=== PATIENT | female | born 1995 | race Native Hawaiian/Other Pacific Islander ===

== ENCOUNTER 2022-11-20 08:08 | Emergency (ER) | payer SELFPAY ==
[2022-11-20 09:05] LABS: Absolute Lymphocytes (CBC) 1.6 K/uL (0.7-4.9); Hematocrit 36.6 % (36.0-45.0); Lymphocytes % 15.1 % (15.3-44.8); MCV 89.1 fL (80-100); RBC Red Blood Cell Count 4.11 M/uL (3.86-4.86)
[2022-11-20 09:21] LABS: Albumin 3.3 g/dL (3.4-5.0); Bilirubin Total 0.3 mg/dL (0.2-1.0); Potassium 3.2 mEq/L (3.5-5.1); Protein, Total 8.3 g/dL (6.4-8.2)
[2022-11-20 10:31] LABS: Specific Gravity > 1.030 (1.005-1.030); Urine Bacteria >50 /HPF (<20); Urine Bilirubin NEGATIVE (Negative); Urine Blood 2+ (Negative); Urine Clarity Extremely Turbid (Clear); Urine Color Yellow (Yellow); Urine Glucose NEGATIVE (Negative); Urine Mucus 2+ /HPF (None Seen); Urine Protein 1+ (Negative); Urine RBC 21-50 /HPF (None Seen); Urine Urobilinogen 1+ (Normal); Urine pH 6.5 (5.0-7.0)
[2022-11-20 10:39] LABS: Specific Gravity > 1.030 (1.005-1.030)
--- NOTE | 2022-11-20 11:34 | RAD REPORT ---
EXAM DESCRIPTION: CT - Abdomen Pelvis W Contrast - 11/20/2022 10:47 am CLINICAL HISTORY: Abd pain;Flank pain COMPARISON: No comparisons TECHNIQUE: Thin cut axial CT imaging of the abdomen and pelvis was performed following intravenous a dministration of 90 Isovue 300. Multiplanar reformats were generated and reviewed. All CT scans are performed using dose optimization technique as appropriate and may include automated exposure control or mA/KV adjustment according to patient size. FINDINGS: No suspicious findings in the lung bases. The liver, spleen, and pancreas show no suspicious findings. Gallbladder and biliary tree are also wi thout suspicious finding. Symmetric renal function is seen with no hydronephrosis or suspicious renal mass. Incidentally noted left renal mid pole 2.3 cm cyst. No dilated bowel loops or bowel wall thickening. No free air, free fluid or inflammatory stranding. A ppendix is unremarkable. Right adnexal lobulated fluid density structures, with the largest component measuring 2.4 x 2.4 cm i n greatest axial dimensions, and demonstrating thick wall with heterogeneous enhancement. Mild fat st randing along the right pelvic sidewall, and right aspect of the retroperitoneum, with prominent righ t retroperitoneal lymph nodes with surrounding fat stranding, the largest measuring 12 millimeter in short axis. Urinary bladder is suboptimally distended, limiting evaluation. No suspicious bony findings. IMPRESSION: Right adnexal lobulated fluid density structures, with the largest component demonstrati ng thick wall with heterogeneous enhancement. Mild fat stranding extending along the right pelvic sidewall and right aspect of the retroperitoneum with mildly prominent lymph nodes. Overall, the findings raise concern for an infectious or inflammatory process in the pelvis, includin g pelvic inflammatory disease. Please correlate clinically. Thrombophlebitis along the right gonadal vein is also a consideration.
--- NOTE | 2022-11-20 11:41 | EDPHYS ---
Physician Documentation [facility] Name: Beryl Reddy Age: 26 yrs Sex: Female : 1995 Arrival Date: 11/20/2022 Time: 08:08 Bed 7 Private MD: ED Physician Bryan Brown HPI: 11/20 08:18 This 26 yrs old Female presents to ER via Unassigned with complaints of Fever, Flank kb Pain, Headache, Nausea/Vomiting. 08:18 The patient reports fever, not measured (subjective), with an emergency department kb temperature of 101.3 degrees Fahrenheit. Onset: The symptoms/episode began/occurred 3 day(s) ago. Modifying factors: there are no obvious modifying factors. Associated signs and symptoms: Pertinent positives: headache, vomiting, low back pain. Severity of symptoms: At their worst the symptoms were moderate in the emergency department the symptoms are unchanged. The patient has not experienced similar symptoms in the past. The patient has not recently seen a physician. Patient is a 26-year-old female with no medical history who presents with fever, headache, low back pain, nausea and vomiting for 3 days. Denies abdominal pain, diarrhea, constipation, urinary symptoms. Denies sick contacts.. Historical: - Allergies: 08:19 No Known Allergies; hb - Home Meds: 08:19 None [Active]; hb - PMHx: 08:19 None; hb - PSHx: 08:19 None; hb - Immunization history:: Adult Immunizations up to date. - Social history:: Smoking status: Patient denies any tobacco usage or history of. ROS: 08:17 Respiratory: Negative for shortness of breath, cough, wheezing, and pleuritic chest kb pain. 08:17 Constitutional: Positive for fever, malaise. 08:17 Abdomen/GI: Positive for nausea and vomiting, Negative for abdominal pain. 08:17 Back: Positive for pain at rest, of the right low back. 08:17 Neuro: Positive for headache. 08:17 All other systems are negative. Exam: 08:17 Constitutional: This is a well developed, well nourished patient who is awake, alert, kb and in no acute distress. Head/Face: Normocephalic, atraumatic. ENT: Moist Mucous membranes Chest/axilla: Normal chest wall appearance and motion. Cardiovascular: Regular rate and rhythm with a normal S1 and S2. No gallops, murmurs, or rubs. No pulse deficits. Respiratory: Respirations even and unlabored. No increased work of breathing. Talking in full sentences Abdomen/GI: Soft, non-tender. No distention Skin: Warm, dry with normal turgor. Normal color. MS/ Extremity: Pulses equal, no cyanosis. Neurovascular intact. Full, normal range of motion. Neuro: Awake and alert, GCS 15, oriented to person, place, time, and situation. Moves all extremities. Normal gait. Vital Signs: 08:17 BP 121 / 71; Pulse 101; Resp 16; Temp 101.2(O); Pulse Ox 100% on R/A; Weight 81.65 kg; hb Height 5 ft. 6 in. ; Pain 6/10; 09:01 BP 114 / 73; Pulse 87; Resp 18; Pulse Ox 100% on R/A; ph 10:25 Temp 100.4(O); ph 12:09 BP 115 / 78; Pulse 89; Resp 18; Temp 99.2; Pulse Ox 99% on R/A; ph 08:17 Body Mass Index 29.05 (81.65 kg, 167.64 cm) hb 08:17 Pain Scale: Adult hb MDM: 08:10 Patient medically screened. kb 08:18 Data reviewed: vital signs, nurses notes. kb 08:19 Differential diagnosis: UTI, strep, flu, COVID, pyelonephritis. kb 11:44 Test considered but Not performed: Ultrasound Transvaginal US considered, but pt does kb not want that done. States she will follow up with [employer]. Pt denies pelvic pain or vaginal discharge. Does not want pelvic exam. Counseling: I had a detailed discussion with the patient and/or guardian regarding: the historical points, exam findings, and any diagnostic results supporting the discharge/admit diagnosis, lab results, radiology results, the need for outpatient follow up, a family practitioner, an OB/Gyne specialist, to return to the emergency department if symptoms worsen or persist or if there are any questions or concerns that arise at home. 11/20 08:16 Order name: CBC with Diff; Complete Time: 09:11 kb 11/20 08:16 Order name: CMP; Complete Time: 09:30 kb 11/20 08:16 Order name: Lipase; Complete Time: 09:30 kb 11/20 08:16 Order name: Test, Urine; Complete Time: 10:45 kb 11/20 08:16 Order name: Urinalysis w/ reflexes; Complete Time: 10:45 kb 11/20 08:16 Order name: Flu; Complete Time: 10:29 kb 11/20 08:16 Order name: SARS-COV-2 RT PCR; Complete Time: 09:38 kb 11/20 08:18 Order name: Strep; Complete Time: 09:30 kb 11/20 09:21 Order name: Throat Culture [facility] 11/20 09:43 Order name: CT Abd/Pelvis - IV Contrast Only; Complete Time: 11:36 kb 11/20 08:16 Order name: IV Saline Lock; Complete Time: 08:59 kb 11/20 08:16 Order name: Labs collected and sent; Complete Time: 08:59 kb Administered Medications: 08:58 Drug: Acetaminophen PO 1000 mg Route: PO; ph 12:05 Follow up: Response: No adverse reaction; Temperature is decreased jl7 11:46 Drug: Rocephin IV 1 grams Route: IV; Rate: calculated rate; Site: right antecubital; jl7 11:55 Follow up: Response: No adverse reaction; IV Status: Completed infusion jl7 Disposition Summary: 11/20/22 11:41 Discharge Ordered Location: Home kb Condition: Stable kb Diagnosis - UTI/ Urinary tract infection, site not specified kb Followup: kb - With: Emergency Department - When: As needed - Reason: Worsening of condition Followup: kb - With: Private Physician - When: 2 - 3 days - Reason: Recheck today's complaints, Continuance of care, Re-evaluation by your physician Discharge Instructions: - Discharge Summary Sheet kb - Urinary Tract Infection, Adult, [id number] kb Forms: - Medication Reconciliation Form kb - Thank You Letter kb - Antibiotic Education kb - Prescription Opioid Use kb - Patient Portal Instructions kb Prescriptions: - Cephalexin 500 mg Oral Capsule - take 1 capsule by ORAL route every 8 hours for 10 days; 30 capsule; Refills: 0, kb Product Selection Permitted - Doxycycline Hyclate 100 mg Oral Tablet - take 1 tablet by ORAL route every 12 hours; 20 tablet; Refills: 0, Product kb Selection Permitted Signatures: Dispatcher [employer] EDJoanne Vogt FNP-C [employer]INE OPERATOR-Gloria Reddy, RN RN ph Marlena An RN RN hb Brandi Garcia RN RN jl7 Corrections: (The following items were deleted from the chart) 08:19 08:19 Allergies: Aspirin; hb hb
--- NOTE | 2022-11-20 11:41 | ER ---
Nurse's Notes [facility] Name: Beryl Reddy Age: 26 yrs Sex: Female : 1995 Arrival Date: 11/20/2022 Time: 08:08 Bed 7 Private MD: Diagnosis: UTI/ Urinary tract infection, site not specified Presentation: 11/20 08:17 Chief complaint: Headache, fever, N/V, and right sided mid back pain x 3 days. hb Coronavirus screen: At this time, the client does not indicate any symptoms associated with coronavirus-19. Ebola Screen: No symptoms or risks identified at this time. Initial Sepsis Screen: Does the patient meet any 2 criteria? No. Patient's initial sepsis screen is negative. Does the patient have a suspected source of infection? No. Patient's initial sepsis screen is negative. Risk Assessment: Do you want to hurt yourself or someone else? Patient reports no desire to harm self or others. Onset of symptoms was November 17, 2022. 08:17 Method Of Arrival: Ambulatory 08:17 Acuity: CINDY 3 Triage Assessment: 12:10 Pain: Also complains of. ph Historical: - Allergies: 08:19 No Known Allergies; hb - Home Meds: 08:19 None [Active]; hb - PMHx: 08:19 None; hb - PSHx: 08:19 None; hb - Immunization history:: Adult Immunizations up to date. - Social history:: Smoking status: Patient denies any tobacco usage or history of. Screenin:00 [facility] ED Fall Risk Assessment (Adult) History of falling in the last 3 months, ph including since admission No falls in past 3 months (0 pts) Confusion or Disorientation No (0 pts) Intoxicated or Sedated No (0 pts) Impaired Gait No (0 pts) Mobility Assist Device Used No (0 pt) Altered Elimination No (0 pt) Score/Fall Risk Level 0 - 2 = Low Risk Oriented to surroundings, Maintained a safe environment, Hourly rounding (assess needs \T\ fall precautionary measures) done. Abuse screen: Denies threats or abuse. Denies injuries from another. Nutritional screening: No deficits noted. Tuberculosis screening: No symptoms or risk factors identified. Assessment: 08:59 General: Appears in no apparent distress. comfortable, well groomed, Behavior is ph cooperative, appropriate for age, anxious. Pain: Complains of pain in right low back. Neuro: Level of Consciousness is awake, alert, obeys commands, Oriented to person, place, time, situation, Reports headache. Cardiovascular: Capillary refill < 3 seconds in bilateral fingers Patient's skin is warm and dry. Respiratory: Airway is patent Respiratory effort is even, unlabored. GI: Reports nausea. : Reports pain in right in lower back. Derm: Skin is pink, warm \T\ dry. Vital Signs: 08:17 BP 121 / 71; Pulse 101; Resp 16; Temp 101.2(O); Pulse Ox 100% on R/A; Weight 81.65 kg; hb Height 5 ft. 6 in. ; Pain 6/10; 09:01 BP 114 / 73; Pulse 87; Resp 18; Pulse Ox 100% on R/A; ph 10:25 Temp 100.4(O); ph 12:09 BP 115 / 78; Pulse 89; Resp 18; Temp 99.2; Pulse Ox 99% on R/A; ph 08:17 Body Mass Index 29.05 (81.65 kg, 167.64 cm) hb 08:17 Pain Scale: Adult hb ED Course: 08:09 Patient arrived in ED. am2 08:10 Joanne Ta FNP-C is [facility] kb 08:10 Bryan Brown MD is Attending Physician. kb 08:19 Triage completed. hb 08:19 Arm band placed on. hb 08:30 Gloria Urban, RN is Primary Nurse. ph 08:59 Strep Sent. ph 08:59 SARS-COV-2 RT PCR Sent. ph 08:59 Flu Sent. ph 08:59 CBC with Diff Sent. ph 08:59 CMP Sent. ph 08:59 Lipase Sent. ph 08:59 Initial lab(s) drawn, by me, sent to lab. COVID swab sent to lab. Flu and/or RSV swab ph sent to lab. Strep swab sent to lab. Inserted saline lock: 22 gauge in right antecubital area, using aseptic technique. Blood collected. 09:01 Patient has correct armband on for positive identification. Bed in low position. Call ph light in reach. Side rails up X 1. Pulse ox on. NIBP on. Door closed. Noise minimized. Lights dimmed. 10:25 Test, Urine Sent. ph 10:25 Urinalysis w/ reflexes Sent. ph 10:48 CT Abd/Pelvis - IV Contrast Only In Process Unspecified. EDMS 12:10 No provider procedures requiring assistance completed. IV discontinued, intact, ph bleeding controlled, No redness/swelling at site. Pressure dressing applied. Administered Medications: 08:58 Drug: Acetaminophen PO 1000 mg Route: PO; ph 12:05 Follow up: Response: No adverse reaction; Temperature is decreased jl7 11:46 Drug: Rocephin IV 1 grams Route: IV; Rate: calculated rate; Site: right antecubital; jl7 11:55 Follow up: Response: No adverse reaction; IV Status: Completed infusion jl7 Medication: 09:01 VIS not applicable for this client. ph Outcome: 11:41 Discharge ordered by . kb 12:10 Discharged to home ambulatory, with family. ph 12:10 Condition: good 12:10 Discharge instructions given to patient, Instructed on discharge instructions, follow up and referral plans. medication usage, Demonstrated understanding of instructions, follow-up care, medications, Prescriptions given X 2. 12:11 Patient left the ED. ph Signatures: Dispatcher [employer] EDMS Joanne Ta, HEAD WAITER/WAITRESS BANQUET-C HEAD WAITER/WAITRESS BANQUET-Gloria Reddy RN RN ph Marlena An RN RN Brandi Garcia RN RN jl7 Katherine South am2 Corrections: (The following items were deleted from the chart) 08:19 08:19 Allergies: Aspirin; hb hb
[2022-11-20] MEDS ORDERED: NA CHLORIDE 0.9% 50 ML ONE (11:53)
[2022-11-20] MEDS ORDERED: CEFTRIAXONE 1000 MG/VIAL ONE (11:53)
[2022-11-20 12:23] VITALS: BP 115/78; TEMP 99.2; O2SAT 99
== END 2022-11-20 12:11 | disposition home or self-care (01) ==
LOC: ER 08:08
DX: N39.0 Urinary tract infection, site not specified (principal)
CPT/HCPCS: 36415; 74177; 80053; 81001; 81025; 83690; 85025; 87070; 87081; 87635; 87804; 96374; 99285; J0696; Q9967

== ENCOUNTER 2022-11-21 18:52 | Emergency (ER) | payer SELFPAY ==
--- NOTE | 2022-11-21 21:14 | RAD REPORT ---
EXAM DESCRIPTION: CT - Head Brain Wo Cont - 11/21/2022 9:01 pm CLINICAL HISTORY: Headache COMPARISON: none TECHNIQUE: Computed axial tomography of the head was obtained. IV contrast was not requested. All CT scans are performed using dose optimization technique as appropriate and may include automated exposure control or mA/KV adjustment according to patient size. FINDINGS: An intracranial bleed is not seen The ventricles are normal in caliber No significant hypodense areas within the brain visualized No extra-axial fluid collection is noted. Fluid within the sinuses/ mastoids is not seen IMPRESSION: No acute intracranial abnormality is seen If patient's symptoms persist MRI of the brain would be recommended
[2022-11-21 21:15] LABS: Specific Gravity 1.018 (1.005-1.030)
[2022-11-21] MEDS ORDERED: NA CHLORIDE 0.9% 1,000 ML ONE ×2 (21:16→23:11)
[2022-11-21 21:17] LABS: Specific Gravity 1.018 (1.005-1.030); Urine Bacteria 20-50 /HPF (<20); Urine Bilirubin NEGATIVE (Negative); Urine Blood Trace (Negative); Urine Clarity Extremely Turbid (Clear); Urine Color Yellow (Yellow); Urine Glucose NEGATIVE (Negative); Urine Mucus Slight /HPF (None Seen); Urine Protein TRACE (Negative); Urine Urobilinogen Normal (Normal)
[2022-11-21 21:29] LABS: Barbiturates NEGATIVE (NEGATIVE); Benzodiazepines NEGATIVE (NEGATIVE); Cocaine NEGATIVE (NEGATIVE); METHAMPHETAM NEGATIVE (NEGATIVE); Methadone NEGATIVE (NEGATIVE); Opiates NEGATIVE (NEGATIVE); Phencyclidine NEGATIVE (NEGATIVE); THC Cannibis NEGATIVE (NEGATIVE)
[2022-11-21 21:40] LABS: Absolute Lymphocytes (CBC) 1.2 K/uL (0.7-4.9); Hematocrit 39.8 % (36.0-45.0); Lymphocytes % 18.3 % (15.3-44.8); MCV 89.4 fL (80-100); MPV 7.3 fL (7.6-11.3); RBC Red Blood Cell Count 4.45 M/uL (3.86-4.86)
[2022-11-21] MEDS ORDERED: METOCLOPRAMIDE 10 MG/2mL INJ ONE (21:55)
[2022-11-21] MEDS ORDERED: DIPHENHYDRAMINE 50 MG/ML VIAL ONE (21:55)
[2022-11-21] MEDS ORDERED: KETOROLAC 30 MG/ML INJ ONE (21:56)
[2022-11-21 22:08] LABS: Albumin 3.5 g/dL (3.4-5.0); Bilirubin Total 0.4 mg/dL (0.2-1.0); Protein, Total 9.1 g/dL (6.4-8.2)
[2022-11-21 22:09] LABS: Potassium 3.5 mEq/L (3.5-5.1)
[2022-11-21] MEDS ORDERED: CEFTRIAXONE 1000 MG/VIAL ONE (22:58)
[2022-11-21] MEDS ORDERED: NA CHLORIDE 0.9% 50 ML ONE (22:58)
--- NOTE | 2022-11-21 23:21 | ER ---
Nurse's Notes [facility] Name: Beryl Reddy Age: 26 yrs Sex: Female : 1995 Arrival Date: 11/21/2022 Time: 18:52 Bed 15 Private MD: Diagnosis: Headache;Nausea with vomiting, unspecified;UTI/ Urinary tract infection, site not specified Presentation: 11/21 19:11 Chief complaint: Friend and/or Co-Worker states: "she has a headache and she was seen ll1 here and they gave her some medicine but she keeps throwing it up". Coronavirus screen: At this time, the client does not indicate any symptoms associated with coronavirus-19. Ebola Screen: No symptoms or risks identified at this time. Initial Sepsis Screen: Does the patient meet any 2 criteria? No. Patient's initial sepsis screen is negative. Does the patient have a suspected source of infection? No. Patient's initial sepsis screen is negative. Risk Assessment: Do you want to hurt yourself or someone else? Patient reports no desire to harm self or others. Onset of symptoms was November 17, 2022. 19:11 Method Of Arrival: Ambulatory ll1 19:11 Acuity: CINDY 3 ll1 Triage Assessment: 19:20 General: Appears uncomfortable, Behavior is calm, cooperative. Pain: Complains of pain ha1 in head Pain currently is 10 out of 10 on a pain scale. Neuro: Level of Consciousness is awake, alert, obeys commands, Oriented to person, place, time, situation. Cardiovascular: Patient's skin is warm and dry. Respiratory: Airway is patent Respiratory effort is even, unlabored, Respiratory pattern is regular, symmetrical. GI: Reports nausea, vomiting. DOPE FIRER: 19:17 LMP 10/2022 ll1 Historical: - Allergies: 19:16 No Known Allergies; ll1 - Home Meds: 19:16 None [Active]; ll1 - PMHx: 19:16 None; ll1 - PSHx: 19:16 None; ll1 - Immunization history:: Client reports having NOT received the Covid vaccine. - Social history:: Smoking status: Patient denies any tobacco usage or history of. Screenin:30 [facility] ED Fall Risk Assessment (Adult) History of falling in the last 3 months, ha1 including since admission No falls in past 3 months (0 pts) Confusion or Disorientation No (0 pts) Intoxicated or Sedated No (0 pts) Impaired Gait No (0 pts) Mobility Assist Device Used No (0 pt) Altered Elimination No (0 pt) Score/Fall Risk Level 0 - 2 = Low Risk Oriented to surroundings, Maintained a safe environment, Educated pt \\T\\ family on fall prevention, incl call for assistance when getting out of bed. Abuse screen: Denies threats or abuse. Denies injuries from another. Nutritional screening: No deficits noted. Tuberculosis screening: No symptoms or risk factors identified. Assessment: 20:30 General: Appears uncomfortable, Behavior is cooperative. Pain: Pain does not radiate. ha1 Pain currently is 7 out of 10 on a pain scale. Quality of pain is described as crampy. Pain: Complains of pain in head. Neuro: Level of Consciousness is awake, alert, obeys commands, Oriented to person, place, time, situation. Cardiovascular: Patient's skin is warm and dry. Respiratory: Airway is patent Respiratory effort is even, unlabored, Respiratory pattern is regular, symmetrical. GI: Abdomen is flat, non-distended, Bowel sounds present X 4 quads. Reports upper abdominal pain, cramping, nausea, vomiting. : No signs and/or symptoms were reported regarding the genitourinary system. Derm: Skin is moist, Skin is normal. Musculoskeletal: Circulation, motion, and sensation intact. Range of motion: intact in all extremities. 20:45 Reassessment: going to CT. ha1 21:30 Reassessment: Patient and/or family updated on plan of care and expected duration. Pain ha1 level reassessed. Patient is alert, oriented x 3, equal unlabored respirations, skin warm/dry/pink. pain 9/10. notified care provider. 22:30 Reassessment: Patient and/or family updated on plan of care and expected duration. Pain ha1 level reassessed. Patient is alert, oriented x 3, equal unlabored respirations, skin warm/dry/pink. 23:19 Reassessment: Patient and/or family updated on plan of care and expected duration. Pain ha1 level reassessed. Patient is alert, oriented x 3, equal unlabored respirations, skin warm/dry/pink. Patient denies pain at this time. Patient states feeling better. Patient states symptoms have improved. 23:30 Reassessment: awaiting on infusion of fluids to be completed. ha1 Vital Signs: 19:11 BP 99 / 71; Pulse 77; Resp 18 S; Temp 98.1(TE); Pulse Ox 99% on R/A; Weight 82.1 kg ll1 (R); Height 5 ft. 6 in. (R); Pain 10/10; 20:30 BP 100 / 70; Pulse 75; Resp 18 S; Pulse Ox 99% on R/A; ha1 21:30 BP 116 / 75; Pulse 76; Resp 18 S; Pulse Ox 100% on R/A; ha1 22:30 BP 118 / 73; Pulse 75; Resp 18 S; Pulse Ox 100% on R/A; ha1 23:30 BP 124 / 75; Pulse 90; Resp 19 S; Pulse Ox 100% on R/A; ha1 19:11 Body Mass Index 29.21 (82.10 kg, 167.64 cm) ll1 19:11 Pain Scale: Adult [facility] ED Course: 18:54 Patient arrived in ED. am2 19:16 Triage completed. ll1 19:17 Bryan Gupta PA is PHCP. cp 19:17 Bryan Brown MD is Attending Physician. cp 19:17 Arm band placed on. ll1 20:00 Patient has correct armband on for positive identification. Placed in gown. Bed in low ha1 position. Call light in reach. Side rails up X 1. 20:30 Inserted saline lock: 22 gauge in right antecubital area, using aseptic technique. ha1 Blood collected. 20:58 PREGU Sent. bc6 20:58 UDS Sent. bc6 20:58 Urinalysis w/ reflexes Sent. bc6 21:02 CT Head Brain wo Cont In Process Unspecified. EDMS 21:03 Alanna Ruiz, RN is Primary Nurse. ha1 21:27 CBC with Diff Sent. ha1 21:27 CMP Sent. ha1 21:27 Lipase Sent. ha1 21:28 Urinalysis w/ reflexes Sent. ha1 11/22 00:27 No provider procedures requiring assistance completed. IV discontinued, intact, ha1 bleeding controlled, No redness/swelling at site. Pressure dressing applied. 00:30 Provided Education on: medication administration.. ha1 Administered Medications: 11/21 21:20 Drug: NS 0.9% IV 1000 ml Route: IV; Rate: 1 bolus; Site: right forearm; ha1 21:47 Drug: metoCLOPramide IVP 10 mg Route: IVP; Site: right forearm; ha1 22:15 Follow up: Response: No adverse reaction ha1 21:50 Drug: diphenhydrAMINE IVP 25 mg Route: IVP; Site: right forearm; ha1 22:15 Follow up: Response: No adverse reaction ha1 21:52 Drug: Ketorolac IVP 15 mg Route: IVP; Site: right forearm; ha1 22:15 Follow up: Response: No adverse reaction; Pain is decreased ha1 22:55 Drug: Rocephin IV 1 grams Route: IV; Rate: calculated rate; Site: right forearm; ha1 23:15 Follow up: Response: No adverse reaction; IV Status: Completed infusion; IV Intake: [id number] 23:13 Drug: NS 0.9% IV 1000 ml Route: IV; Rate: 1 bolus; Site: right antecubital; ha1 11/22 00:26 Follow up: Response: No adverse reaction; IV Status: Completed infusion; IV Intake: ha1 1000ml Medication: 00:30 VIS not applicable for this client. ha1 Intake: 11/21 23:15 IV: 50ml; Total: 50ml. ha1 11/22 00:26 IV: 1000ml; Total: 1050ml. ha1 Outcome: 11/21 23:20 Discharge ordered by MD. lobo 11/22 00:29 Discharged to home ambulatory, with family. ha1 Condition: stable Discharge instructions given to patient, family, Instructed on discharge instructions, follow up and referral plans. medication usage, Demonstrated understanding of instructions, follow-up care, medications, Prescriptions given X 2. 00:30 Patient left the ED. ha1 Signatures: Dispatcher [employer] EDMS rByan Gupta PA PA cp Moreno, Amanda am2 Deena Jacobsen RN RN ll1 Alanna Ruiz RN RN ha1 Roxy Rubalcava bc6 Corrections: (The following items were deleted from the chart) 11/21 21:29 20:30 Pain: Complains of pain in abdomen ha1 ha05 28:29 20:30 Pain: Pain does not radiate. Pain currently is 7 out of 10 on a pain scale. ha1 Quality of pain is described as crampy, ha1
--- NOTE | 2022-11-21 23:21 | EDPHYS ---
Physician Documentation [facility] Name: Beryl Reddy Age: 26 yrs Sex: Female : 1995 Arrival Date: 11/21/2022 Time: 18:52 Bed 15 Private MD: ED Physician Bryan Brown HPI: 11/21 20:45 This 26 yrs old Female presents to ER via Ambulatory with complaints of cp Nausea/Vomiting, Headache. 20:45 The patient presents to the emergency department with nausea, that is moderate, cp vomiting, that is intermittent. Onset: The symptoms/episode began/occurred this morning. Possible causes: antibiotics. Associated signs and symptoms: Pertinent positives: headache, Pertinent negatives: abdominal pain, diarrhea, fever, GI bleeding, active vomiting. Patient returns to ED after being seen yesterday and diagnosed with UTI. Patient prescribed antibiotic but has been unable to hold antibiotic down due to vomiting. Patient presents with c/o headache. 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 - Social history:: Smoking status: Patient denies any tobacco usage or history of. ROS: 20:50 Constitutional: Positive for poor PO intake, Negative for body aches, chills, fever. cp 20:50 Eyes: Negative for injury, pain, redness, and discharge. cp 20:50 ENT: Negative for drainage from ear(s), ear pain, sore throat, difficulty swallowing, difficulty handling secretions. 20:50 Cardiovascular: Negative for chest pain. 20:50 Respiratory: Negative for cough, shortness of breath, wheezing. 20:50 Abdomen/GI: Positive for nausea and vomiting, Negative for abdominal pain, diarrhea, constipation. 20:50 : Positive for urinary symptoms. 20:50 Neuro: Positive for headache, Negative for altered mental status, dizziness, syncope, weakness. 20:50 All other systems are negative. Exam: 20:55 Constitutional: The patient appears in no acute distress, alert, awake, non-toxic, well cp developed, well nourished. 20:55 Head/Face: Normocephalic, atraumatic. cp 20:55 Eyes: Periorbital structures: appear normal, Pupils: equal, round, and reactive to light and accomodation, Extraocular movements: intact throughout, Conjunctiva: normal, no exudate, no injection, Sclera: no appreciated abnormality, Lids and lashes: appear normal, bilaterally. 20:55 ENT: External ear(s): are unremarkable, Nose: is normal, Mouth: Lips: moist, Oral mucosa: pink and intact, moist, Posterior pharynx: is normal, airway is patent, no erythema, no exudate. 20:55 Neck: ROM/movement: is normal, is supple, without pain, no range of motions limitations, no meningismus, no nuchal rigidity. 20:55 Chest/axilla: Inspection: normal. 20:55 Cardiovascular: Rate: normal, Rhythm: regular. 20:55 Respiratory: the patient does not display signs of respiratory distress, Respirations: normal, no use of accessory muscles, no retractions, labored breathing, is not present, Breath sounds: are clear throughout, no decreased breath sounds, no stridor, no wheezing. 20:55 Abdomen/GI: Inspection: abdomen appears normal, Palpation: abdomen is soft and non-tender, in all quadrants. 20:55 Back: CVA tenderness, is absent. 20:55 Skin: no rash present. 20:55 Neuro: Orientation: to person, place \T\ time. Mentation: is normal, Cerebellar function: is grossly normal, Motor: moves all fours, strength is normal, Sensation: is normal. Vital Signs: 19:11 BP 99 / 71; Pulse 77; Resp 18 S; Temp 98.1(TE); Pulse Ox 99% on R/A; Weight 82.1 kg ll1 (R); Height 5 ft. 6 in. (R); Pain 10/10; 20:30 BP 100 / 70; Pulse 75; Resp 18 S; Pulse Ox 99% on R/A; ha1 21:30 BP 116 / 75; Pulse 76; Resp 18 S; Pulse Ox 100% on R/A; ha1 22:30 BP 118 / 73; Pulse 75; Resp 18 S; Pulse Ox 100% on R/A; ha1 23:30 BP 124 / 75; Pulse 90; Resp 19 S; Pulse Ox 100% on R/A; ha1 19:11 Body Mass Index 29.21 (82.10 kg, 167.64 cm) ll1 19:11 Pain Scale: Adult ll1 MDM: 19:18 Patient medically screened. 21:00 Differential diagnosis: cholecystitis, appendicitis, viral gastroenteritis, cp gastroenteritis, dehydration, sepsis, electrolyte abnormality. 23:20 Data reviewed: vital signs, nurses notes, lab test result(s), radiologic studies, CT cp scan, and as a result, I will discharge patient. 23:20 Consideration of Admission/Observation Escalation of care including cp admission/observation considered. 23:20 I considered the following discharge prescriptions or medication management in the emergency department Medications were administered in the Emergency Department. See MAR. Counseling: I had a detailed discussion with the patient and/or guardian regarding: the historical points, exam findings, and any diagnostic results supporting the discharge/admit diagnosis, lab results, radiology results, to return to the emergency department if symptoms worsen or persist or if there are any questions or concerns that arise at home. Response to treatment: the patient's symptoms have markedly improved after treatment, patient is well hydrated. nausea improved, vomiting resolved, and as a result, I will discharge patient. 11/21 20:33 Order name: CBC with Diff; Complete Time: 22:36 11/21 22:36 Interpretation: Normal except: MPV 7.3. 11/21 20:33 Order name: CMP; Complete Time: 22:36 11/21 22:36 Interpretation: Normal except: NA 134; TP 9.1; GLOB 5.6; A/G 0.6. 11/21 20:33 Order name: Lipase; Complete Time: 22:36 11/21 20:33 Order name: Urinalysis w/ reflexes; Complete Time: 21:31 cp 11/21 20:33 Order name: UDS; Complete Time: 21:31 cp 11/21 20:33 Order name: PREGU; Complete Time: 21:31 11/21 21:32 Order name: Urine Culture EDMS 11/21 20:38 Order name: CT Head Brain wo Cont; Complete Time: 21:31 cp 11/21 20:33 Order name: IV Saline Lock; Complete Time: 21:27 cp 11/21 20:33 Order name: Labs collected and sent; Complete Time: 21:27 cp 11/21 22:39 Order name: PO challenge; Complete Time: 22:43 cp Administered Medications: 21:20 Drug: NS 0.9% IV 1000 ml Route: IV; Rate: 1 bolus; Site: right forearm; ha1 21:47 Drug: metoCLOPramide IVP 10 mg Route: IVP; Site: right forearm; ha1 22:15 Follow up: Response: No adverse reaction ha1 21:50 Drug: diphenhydrAMINE IVP 25 mg Route: IVP; Site: right forearm; ha1 22:15 Follow up: Response: No adverse reaction ha1 21:52 Drug: Ketorolac IVP 15 mg Route: IVP; Site: right forearm; ha1 22:15 Follow up: Response: No adverse reaction; Pain is decreased ha1 22:55 Drug: Rocephin IV 1 grams Route: IV; Rate: calculated rate; Site: right forearm; ha1 23:15 Follow up: Response: No adverse reaction; IV Status: Completed infusion; IV Intake: [id number] 23:13 Drug: NS 0.9% IV 1000 ml Route: IV; Rate: 1 bolus; Site: right antecubital; ha1 11/22 00:26 Follow up: Response: No adverse reaction; IV Status: Completed infusion; IV Intake: ha1 1000ml Disposition Summary: 11/21/22 23:20 Discharge Ordered Location: Home cp Problem: an ongoing problem cp Symptoms: have improved cp Condition: Stable cp Diagnosis - Headache cp - Nausea with vomiting, unspecified cp - UTI/ Urinary tract infection, site not specified cp Followup: cp - With: Private Physician - When: 2 - 3 days - Reason: Recheck today's complaints Discharge Instructions: - Discharge Summary Sheet cp - Nausea and Vomiting, Adult cp - Urinary Tract Infection, Adult cp Forms: - Medication Reconciliation Form cp - Thank You Letter cp - Antibiotic Education cp - Prescription Opioid Use cp - Patient Portal Instructions cp Prescriptions: - Ibuprofen 800 mg Oral Tablet - take 1 tablet by ORAL route every 8 hours As needed take with food; 30 tablet; cp Refills: 0, Product Selection Permitted - Zofran 4 mg Oral Tablet - take 1 tablet by ORAL route every 12 hours As needed; 20 tablet; Refills: 0, cp Product Selection Permitted Signatures: Dispatcher [employer] EDAK Bryan Gupta PA PA cp Lewis, Lynsay, RN RN ll1 Alanna Ruiz, RN RN ha1
[2022-11-22 02:48] VITALS: TEMP 98.1
[2022-11-22 02:54] VITALS: O2SAT 100
[2022-11-22 02:58] VITALS: BP 124/75
== END 2022-11-22 00:30 | disposition home or self-care (01) ==
LOC: ER 18:52
DX: Z48.02 Encounter for removal of sutures (principal)
CPT/HCPCS: 36415; 70450; 80053; 80307; 81001; 81025; 83690; 85025; 87086; 87088; 96361; 96365; 96375; 99284; J0696; J1200; J2765; J7030